=== PATIENT | female | born 1995 | race Hispanic/Latino ===

== ENCOUNTER 2022-08-09 14:51 | Emergency (ER) | payer OTHER ==
--- NOTE | 2022-08-09 15:49 | EDPHYS ---
Physician Documentation [facility] Name: Jessica Webb Age: 27 yrs Sex: Female : 1995 Arrival Date: 08/09/2022 Time: 14:51 Bed DX4 Private MD: ED Physician Jack Felix HPI: 08/09 15:51 This 27 yrs old Female presents to ER via Ambulatory with complaints of snw Toothache. 15:51 The patient presents with broken tooth/teeth. The problem is located in the upper left snw third molar. Onset: The symptoms/episode began/occurred acutely. Duration: The symptoms are continuous. Severity of symptoms: At their worst the symptoms were very mild. It is unknown whether or not the patient has had similar symptoms in the past. It is unknown whether or not the patient has recently seen a physician. [employer]: 15:11 LMP 08/08/2022 cm10 Historical: - Allergies: 15:10 metformin; cm10 - PMHx: 15:10 Diabetes mellitus; cm10 - PSHx: 15:10 section; cm10 15:12 Ligation of fallopian tube; cm10 - Immunization history:: Adult Immunizations unknown. - Social history:: Smoking status: Patient/guardian denies using tobacco. ROS: 15:51 Constitutional: Negative for fever, chills, and weight loss, Eyes: Negative for injury, snw pain, redness, and discharge, ENT: Negative for injury, pain, and discharge, broken tooth, encouraged to get seen for abx Neck: Negative for injury, pain, and swelling, Cardiovascular: Negative for chest pain, palpitations, and edema, Respiratory: Negative for shortness of breath, cough, wheezing, and pleuritic chest pain, Abdomen/GI: Negative for abdominal pain, nausea, vomiting, diarrhea, and constipation, Back: Negative for injury and pain, : Negative for injury, bleeding, discharge, and swelling, MS/Extremity: Negative for injury and deformity, Skin: Negative for injury, rash, and discoloration, Neuro: Negative for headache, weakness, numbness, tingling, and seizure, Psych: Negative for depression, anxiety, suicide ideation, homicidal ideation, and hallucinations. Exam: 15:50 Constitutional: This is a well developed, well nourished patient who is awake, alert, snw and in no acute distress. Head/Face: Normocephalic, atraumatic. Eyes: Pupils equal round and reactive to light, extra-ocular motions intact. Lids and lashes normal. Conjunctiva and sclera are non-icteric and not injected. Cornea within normal limits. Periorbital areas with no swelling, redness, or edema. ENT: Nares patent. No nasal discharge, no septal abnormalities noted. Tympanic membranes are normal and external auditory canals are clear. Oropharynx with no redness, swelling, or masses, exudates, or evidence of obstruction, uvula midline. Mucous membranes moist. Broken molar to left upper area, denies pain Neck: Trachea midline, no thyromegaly or masses palpated, and no cervical lymphadenopathy. Supple, full range of motion without nuchal rigidity, or vertebral point tenderness. No Meningismus. Chest/axilla: Normal chest wall appearance and motion. Nontender with no deformity. No lesions are appreciated. Cardiovascular: Regular rate and rhythm with a normal S1 and S2. No gallops, murmurs, or rubs. Normal PMI, no JVD. No pulse deficits. Respiratory: Lungs have equal breath sounds bilaterally, clear to auscultation and percussion. No rales, rhonchi or wheezes noted. No increased work of breathing, no retractions or nasal flaring. Abdomen/GI: Soft, non-tender, with normal bowel sounds. No distension or tympany. No guarding or rebound. No evidence of tenderness throughout. Back: No spinal tenderness. No costovertebral tenderness. Full range of motion. Skin: Warm, dry with normal turgor. Normal color with no rashes, no lesions, and no evidence of cellulitis. MS/ Extremity: Pulses equal, no cyanosis. Neurovascular intact. Full, normal range of motion. Neuro: Awake and alert, GCS 15, oriented to person, place, time, and situation. Cranial nerves II-XII grossly intact. Motor strength 5/5 in all extremities. Sensory grossly intact. Cerebellar exam normal. Normal gait. Vital Signs: 15:06 BP 143 / 104; Pulse 109; Resp 18; Temp 98.4(O); Pulse Ox 98% on R/A; Weight 83.01 kg cm10 (R); Height 5 ft. 5 in. (R); Pain 0/10; 15:06 Body Mass Index 30.45 (83.01 kg, 165.1 cm) cm10 15:06 Pain Scale: Adult cm10 MDM: 15:33 Patient medically screened. snw 15:52 Differential diagnosis: dental caries, gingivitis, dental abscess. Data reviewed: vital snw signs, nurses notes. Counseling: I had a detailed discussion with the patient and/or guardian regarding: the historical points, exam findings, and any diagnostic results supporting the discharge/admit diagnosis, the presence of at least one elevated blood pressure reading (>120/80) during this emergency department visit, the need for outpatient follow up, for definitive care, to return to the emergency department if symptoms worsen or persist or if there are any questions or concerns that arise at home. Special discussion: I have referred the patient to see his PCP for further evaluation of high blood pressure. Based on the history and exam findings, there is no indication for further emergent testing or inpatient evaluation. I discussed with the patient/guardian the need to see a dentist for further evaluation of the symptoms. I discussed with the patient/guardian the need to see the primary care provider for further evaluation of the symptoms. Administered Medications: 16:05 Drug: Amoxicillin-Clavulanate PO 875 mg Route: PO; ll1 16:05 Follow up: Response: No adverse reaction ll1 Disposition Summary: 08/09/22 15:48 Discharge Ordered Location: Home snw Condition: Stable snw Diagnosis - Dental caries, unspecified snw Followup: snw - With: Emergency Department - When: As needed - Reason: Worsening of condition Followup: snw - With: Private Physician - When: 2 - 3 days - Reason: Recheck today's complaints, Continuance of care, Re-evaluation by your physician Discharge Instructions: - Discharge Summary Sheet snw - Dental Caries, Adult snw - Diabetes Mellitus and Nutrition, Adult snw - Diet and Dental Disease snw - Diabetes Mellitus and Standards of Medical Care snw Forms: - Medication Reconciliation Form snw - Thank You Letter snw - Antibiotic Education snw - Prescription Opioid Use snw Prescriptions: - Augmentin 500-125 mg Oral Tablet - take 1 tablet by ORAL route every 8 hours for 10 days; 30 tablet; Refills: 0, snw Product Selection Permitted Signatures: Heidi Engel FNP-Yfn WASTE MACHINE OPERATOR-Csnw Ellie Wynne RN RN ll1 Terra Knowles, RN RN cm10
--- NOTE | 2022-08-09 15:49 | ER ---
Nurse's Notes [facility] Name: Jessica Webb Age: 27 yrs Sex: Female : 1995 Arrival Date: 08/09/2022 Time: 14:51 Bed DX4 Private MD: Diagnosis: Dental caries, unspecified Presentation: 08/09 15:06 Chief complaint: Patient states: Pt reports, "I called my doctor and he told me to come cm10 to the ED because I broke my tooth and I am diabetic. I am not having any pain.". Coronavirus screen: Vaccine status: Patient reports receiving the 2nd dose of the covid vaccine. Client denies travel out of the [place] in the last 14 days. At this time, the client does not indicate any symptoms associated with coronavirus-19. Ebola Screen: No symptoms or risks identified at this time. Initial Sepsis Screen: Does the patient meet any 2 criteria? No. Patient's initial sepsis screen is negative. Does the patient have a suspected source of infection? No. Patient's initial sepsis screen is negative. Risk Assessment: Do you want to hurt yourself or someone else? Patient reports no desire to harm self or others. Onset of symptoms was August 04, 2022. 15:06 Method Of Arrival: Ambulatory cm10 15:06 Acuity: SURINDER 4 cm10 Triage Assessment: 15:16 General: Appears in no apparent distress. uncomfortable, Behavior is calm, cooperative. cm10 Pain: Denies pain. EENT: Reports broken molar to the top right side . Neuro: No deficits noted. Level of Consciousness is awake, alert, obeys commands, Oriented to person, place, time, situation. Respiratory: No deficits noted. Airway is patent Trachea midline Respiratory effort is even, unlabored, Respiratory pattern is regular, symmetrical. 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 - Social history:: Smoking status: Patient/guardian denies using tobacco. Screenin:19 [facility] ED Fall Risk Assessment (Adult) History of falling in the last 3 months, cm10 including since admission No falls in past 3 months (0 pts) Confusion or Disorientation No (0 pts) Intoxicated or Sedated No (0 pts) Impaired Gait No (0 pts) Mobility Assist Device Used No (0 pt) Altered Elimination No (0 pt) Score/Fall Risk Level 0 - 2 = Low Risk. Abuse screen: Denies threats or abuse. Denies injuries from another. Nutritional screening: No deficits noted. Tuberculosis screening: No symptoms or risk factors identified. Assessment: 15:19 Reassessment: No changes from previously documented assessment. cm10 16:05 Reassessment: No changes from previously documented assessment. Patient and/or family ll1 updated on plan of care and expected duration. Pain level reassessed. Vital Signs: 15:06 BP 143 / 104; Pulse 109; Resp 18; Temp 98.4(O); Pulse Ox 98% on R/A; Weight 83.01 kg cm10 (R); Height 5 ft. 5 in. (R); Pain 0/10; 15:06 Body Mass Index 30.45 (83.01 kg, 165.1 cm) cm10 15:06 Pain Scale: Adult cm10 ED Course: 14:55 Patient arrived in ED. mr 15:10 Triage completed. cm10 15:12 Arm band placed on Patient placed in waiting room. cm10 15:19 Heidi [facility]el [facility]-C [facility]. snw 15:19 Jack Felix MD is Attending Physician. snw 15:19 Patient has correct armband on for positive identification. cm10 16:05 No provider procedures requiring assistance completed. Patient did not have IV access ll1 during this emergency room visit. Administered Medications: 16:05 Drug: Amoxicillin-Clavulanate PO 875 mg Route: PO; ll1 16:05 Follow up: Response: No adverse reaction ll1 Medication: 15:19 VIS not applicable for this client. cm10 Outcome: 15:48 Discharge ordered by . snw 16:05 Discharged to home ambulatory. ll1 16:05 Condition: stable 16:05 Discharge instructions given to patient, Instructed on discharge instructions, follow up and referral plans. medication usage, Demonstrated understanding of instructions, follow-up care, medications, Prescriptions given X 1. 16:06 Patient left the ED. ll1 Signatures: Heidi Engel FNP-C FNP-Csnw Radha Villagran mr Ricci, Ellie, RN RN ll1 Benson, Terra, RN RN cm10
[2022-08-09] MEDS ORDERED: AMOX/K CLAV 875 MG TAB ONE (16:08)
[2022-08-09 16:46] VITALS: BP 143/104; TEMP 98.4; O2SAT 98
== END 2022-08-09 16:06 | disposition home or self-care (01) ==
LOC: ER 14:51
DX: K02.9 Dental caries, unspecified (principal); E11.9 Type 2 diabetes mellitus without complications; Z88.8 Allergy status to other drugs, medicaments and biological substances
CPT/HCPCS: 99283

== ENCOUNTER 2023-07-10 13:04 | Emergency (ER) | payer OTHER, SELFPAY ==
--- OUTSIDE RECORDS SUMMARY | 2023-07-10 13:09 | XMS REPORT | Continuity of Care Document ---
Author Name Unknown Address [address] [place] [address] [address] [place] [address] 1 [address] [place] [address] Care Team Providers Care Parts Finisher Name Role Phone Unavailable Unavailable Unavailable Encounters Start Date/Time End Date/Time Encounter Type Admission Type Attending Clinicians Care Facility Care Department Encounter ID Source 2023-06-27 10:00:51 2023-06-27 10:00:[address] [facility] [id number] Francesco Batista
[2023-07-10] MEDS ORDERED: dexAMETHasone 10 MG/ML VIAL ONE (13:36)
[2023-07-10] MEDS ORDERED: HYDROCODONE/APAP 7.5/325 MG TAB ONE (13:36)
--- NOTE | 2023-07-10 14:01 | RAD REPORT ---
EXAM DESCRIPTION: RAD - Tib Fib Right - 07/10/2023 1:43 pm CLINICAL HISTORY: Right leg pain FINDINGS: No fracture is seen
[2023-07-10 14:28] LABS: Specific Gravity 1.026 (1.005-1.030)
[2023-07-10 14:32] LABS: Specific Gravity 1.026 (1.005-1.030); Sqamous Epithelial <5 /HPF (None Seen); Urine Bacteria <20 /HPF (<20); Urine Bilirubin NEGATIVE (Negative); Urine Blood Negative (Negative); Urine Clarity Turbid (Clear); Urine Color Yellow (Yellow); Urine Culture Reflex Order NOT NEEDED; Urine Glucose 4+ (Over) (Negative); Urine Ketones 2+ (Negative); Urine Microscopic Reflex YN ORDER UMIC; Urine Mucus 2+ /HPF (None Seen); Urine Nitrite NEGATIVE (Negative); Urine Protein TRACE (Negative); Urine RBC <5 /HPF (None Seen); Urine Urobilinogen 1+ (Normal); Urine WBC <5 /HPF (<5)
--- NOTE | 2023-07-10 14:47 | EDPHYS ---
Physician Documentation [facility] Name: Jessica Webb Age: 28 yrs Sex: Female : 1995 Arrival Date: 07/10/2023 Time: 13:04 Bed 19 Private MD: ED Physician Justin Bragg HPI: 07/09 13:51 This 28 yrs old Female presents to ER via Ambulatory with complaints of Leg kb Pain. 13:51 Pt is a 28 year old female who presents for left low back pain and right leg pain that kb started 1.5 weeks ago after stepping into a hole with right foot and getting stuck. States her pulled her leg out of the hole. Was seen at another ER and given antiinflammatories and muscle relaxers, but the pain has not improved. States they did not do x-rays to evaluate her leg. . 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 - Infectious Disease History:: Denies. - Social history:: Smoking status: Patient denies any tobacco usage or history of. ROS: 13:51 Constitutional: As per HPI kb Exam: 13:51 Constitutional: This is a well developed, well nourished patient who is awake, alert, kb and in no acute distress. Head/Face: Normocephalic, atraumatic. ENT: Moist Mucous membranes Cardiovascular: Regular rate Respiratory: Respirations even and unlabored. No increased work of breathing. Talking in full sentences Skin: Warm, dry with normal turgor. Normal color. Neuro: Awake and alert, GCS 15, oriented to person, place, time, and situation. Moves all extremities. Normal gait. 13:51 Back: pain, that is moderate, of the left low back, 13:51 Musculoskeletal/extremity: Extremities: grossly normal except: noted in the right leg: pain, noted in the right verde: tenderness, ROM: intact in all extremities, Circulation is intact in all extremities. Sensation intact. Weight bearing: able to fully bear weight, Vital Signs: 13:11 BP 140 / 90; Pulse 84; Resp 18; Temp 97.7; Pulse Ox 100% ; Weight 80.29 kg; Height 5 as6 ft. 5 in. ; Pain 7/10; 14:58 BP 123 / 87; Pulse 85; Resp 19 S; Pulse Ox 100% on R/A; kc6 13:11 Body Mass Index 29.45 (80.29 kg, 165.1 cm) as6 13:11 Pain Scale: Adult as6 MDM: 13:10 Patient medically screened. kb 13:53 Differential diagnosis: closed fracture, strain, sciatica. Data reviewed: vital signs, kb nurses notes. 14:10 Counseling: I had a detailed discussion with the patient and/or guardian regarding the kb historical points, exam findings, and any diagnostic results supporting the discharge/admit diagnosis, lab results, radiology results, the need for outpatient follow up, a family practitioner, a orthopedic surgeon, to return to the emergency department if symptoms worsen or persist or if there are any questions or concerns that arise at home. 07/09 13:21 Order name: Test, Urine; Complete Time: 14:43 kb 07/09 13:21 Order name: Urinalysis w/ reflexes; Complete Time: 14:43 kb 07/09 13:21 Order name: Tib Fib Right XRAY; Complete Time: 14:10 kb Administered Medications: 13:47 Drug: Dexamethasone IM 10 mg IM once Route: IM; Site: right deltoid; kc6 14:51 Follow up: Response: No adverse reaction [facility] 13:47 Drug: Hydrocodone-Acetaminophen PO (7.5 mg-325 mg) 1 tabs PO once Route: PO; kc6 14:51 Follow up: Response: No adverse reaction; Pain is decreased; RASS: Alert and Calm (0) kc6 Disposition: 17:50 Co-signature as Attending Physician, Justin Bragg MD I reviewed the patient's care rn provided by the Advanced Practice Provider and agree with the diagnosis and treatment plan. Disposition Summary: 07/10/23 14:46 Discharge Ordered Notes: Location: Home Condition: Stable kb Diagnosis - Pain in right leg kb Followup: kb - With: Emergency Department - When: As needed - Reason: Worsening of condition Followup: kb - With: Private Physician - When: 2 - 3 days - Reason: Recheck today's complaints, Continuance of care, Re-evaluation by your physician Discharge Instructions: - Discharge Summary Sheet kb - Musculoskeletal Pain kb Forms: - Medication Reconciliation Form kb - Antibiotic Education kb - Prescription Opioid Use kb - Patient Portal Instructions kb - Leadership Thank You Letter kb Signatures: Dispatcher [employer] EDLolita Georges FNP-C FNP-Justin Mares MD MD rn Slawson, Ashby, RN RN as6 Nette Grossman RN RN kc6 Corrections: (The following items were deleted from the chart) 13:21 13:21 Test, Urine+UC.LAB.BRZ ordered. EDMS EDMS 13:21 13:21 Urinalysis+U.LAB.BRZ ordered. EDMS EDMS
--- NOTE | 2023-07-10 14:47 | ER ---
Nurse's Notes [facility] Name: Jessica Webb Age: 28 yrs Sex: Female : 1995 Arrival Date: 07/10/2023 Time: 13:04 Bed 19 Private MD: Diagnosis: Pain in right leg Presentation: 07/09 13:11 Chief complaint: Patient states: right leg pain after stepping into a pot hole a week as6 and a half ago. Coronavirus screen: At this time, the client does not indicate any symptoms associated with coronavirus-19. Ebola Screen: No symptoms or risks identified at this time. Initial Sepsis Screen: Does the patient meet any 2 criteria? No. Patient's initial sepsis screen is negative. Does the patient have a suspected source of infection? No. Patient's initial sepsis screen is negative. Risk Assessment: Do you want to hurt yourself or someone else? Patient reports no desire to harm self or others. Onset of symptoms was June 30, 2023. 13:11 Acuity: SURINDER 4 as6 13:11 Method Of Arrival: Ambulatory as6 Triage Assessment: 13:13 General: Appears uncomfortable, Behavior is calm, cooperative. Pain: Complains of pain as6 in right leg. 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 - Infectious Disease History:: Denies. - Social history:: Smoking status: Patient denies any tobacco usage or history of. Screenin:15 [facility] ED Fall Risk Assessment (Adult) History of falling in the last 3 months, kc6 including since admission No falls in past 3 months (0 pts) Confusion or Disorientation No (0 pts) Intoxicated or Sedated No (0 pts) Impaired Gait No (0 pts) Mobility Assist Device Used No (0 pt) Altered Elimination No (0 pt) Score/Fall Risk Level 0 - 2 = Low Risk. Abuse screen: Denies threats or abuse. Denies injuries from another. Nutritional screening: No deficits noted. Tuberculosis screening: No symptoms or risk factors identified. Assessment: 13:15 General: Appears in no apparent distress. uncomfortable, well groomed, well developed, kc6 Behavior is calm, cooperative, appropriate for age. Pain: Complains of pain in right leg. Neuro: Level of Consciousness is awake, alert, obeys commands, Oriented to person, place, time, situation, Appropriate for age. Cardiovascular: Capillary refill < 3 seconds. Respiratory: Airway is patent Trachea midline Respiratory effort is even, unlabored, Respiratory pattern is regular, symmetrical. GI: No signs and/or symptoms were reported involving the gastrointestinal system. : No signs and/or symptoms were reported regarding the genitourinary system. EENT: No signs and/or symptoms were reported regarding the EENT system. Derm: No signs and/or symptoms reported regarding the dermatologic system. Skin is intact, is healthy with good turgor, Skin is pink, warm \T\ dry. Musculoskeletal: Circulation, motion, and sensation intact. Capillary refill < 3 seconds, Range of motion: intact in all extremities. 14:15 Reassessment: Patient appears in no apparent distress at this time. No changes from kc6 previously documented assessment. Patient and/or family updated on plan of care and expected duration. Pain level reassessed. Patient is alert, oriented x 3, equal unlabored respirations, skin warm/dry/pink. Vital Signs: 13:11 BP 140 / 90; Pulse 84; Resp 18; Temp 97.7; Pulse Ox 100% ; Weight 80.29 kg; Height 5 as6 ft. 5 in. ; Pain 7/10; 14:58 BP 123 / 87; Pulse 85; Resp 19 S; Pulse Ox 100% on R/A; kc6 13:11 Body Mass Index 29.45 (80.29 kg, 165.1 cm) as6 13:11 Pain Scale: Adult as6 ED Course: 13:08 Patient arrived in ED. mg5 13:10 Lolita Oconnor [facility]-C [facility] kb 13:10 Justin Bragg MD is Attending Physician. kb 13:11 Arm band placed on right wrist. as6 13:12 Triage completed. as6 13:15 Patient has correct armband on for positive identification. Bed in low position. Call kc6 light in reach. Side rails up X 1. Client placed on continuous cardiac and pulse oximetry monitoring. NIBP monitoring applied. 13:26 Grossman, Nette, RN is Primary Nurse. kc6 13:40 Tib Fib Right XRAY In Process Unspecified. EDMS 14:58 No provider procedures requiring assistance completed. Patient did not have IV access kc6 during this emergency room visit. Administered Medications: 13:47 Drug: Dexamethasone IM 10 mg IM once Route: IM; Site: right deltoid; kc6 14:51 Follow up: Response: No adverse reaction kc6 13:47 Drug: Hydrocodone-Acetaminophen PO (7.5 mg-325 mg) 1 tabs PO once Route: PO; kc6 14:51 Follow up: Response: No adverse reaction; Pain is decreased; RASS: Alert and Calm (0) kc6 Medication: 14:58 VIS not applicable for this client. kc6 Outcome: 14:46 Discharge ordered by . kb 14:58 Discharged to home ambulatory, with significant other, kc6 14:58 Condition: good 14:58 Discharge instructions given to patient, Instructed on discharge instructions, follow up and referral plans. Demonstrated understanding of instructions, follow-up care, 14:58 Patient left the ED. kc6 Signatures: Dispatcher [employer] EDMS Lolita Oconnor, NIGHT BAKER-C NIGHT BAKER-Ramón Barron RN RN as6 Nette Grossman, RN RN candi6 Gloria Lin mg5
[2023-07-10 15:57] VITALS: BP 123/87; TEMP 97.7; O2SAT 100
== END 2023-07-10 14:58 | disposition home or self-care (01) ==
LOC: ER 13:04
DX: M79.604 Pain in right leg (principal)
CPT/HCPCS: 81001; 81025; J1100

== ENCOUNTER 2023-11-01 10:13 | Emergency (ER) | payer SELFPAY ==
--- OUTSIDE RECORDS SUMMARY | 2023-11-01 10:16 | XMS REPORT | Continuity of Care Document ---
Author Name Unknown Address [address] [place] [address]. [address] [place] [address] [facility] [address] [facility] [address] [place] [address] Care Team Providers Care Still Operator Brandy Name Role Phone Unavailable Unavailable Unavailable Encounters Start Date/Time End Date/Time Encounter Type Admission Type Attending Clinicians Care Facility Care Department Encounter ID Source 2023-06-27 10:00:51 2023-06-27 10:00:51 Outpatient [facility] [id number] Francesco Batista
[2023-11-01] MEDS ORDERED: KETOROLAC 30 MG/ML INJ ONE (10:33)
[2023-11-01] MEDS ORDERED: CYCLOBENZAPRINE 10 MG TAB ONE (10:33)
--- NOTE | 2023-11-01 10:33 | ER ---
Nurse's Notes [facility] Name: Jessica Webb Age: 28 yrs Sex: Female : 1995 Arrival Date: 11/01/2023 Time: 10:13 Bed IW1 Private MD: Diagnosis: Muscle spasm of back;Low back pain Presentation: 10/31 10:26 Chief complaint: Patient states: Lower back pain X 2 days. Denies injury. [place] back ld1 pull while giving daughter bath. Coronavirus screen: At this time, the client does not indicate any symptoms associated with coronavirus-19. Ebola Screen: No symptoms or risks identified at this time. Initial Sepsis Screen: Does the patient meet any 2 criteria? No. Patient's initial sepsis screen is negative. Does the patient have a suspected source of infection? No. Patient's initial sepsis screen is negative. Risk Assessment: Do you want to hurt yourself or someone else? Patient reports no desire to harm self or others. Onset of symptoms was November 01, 2023. 10:26 Method Of Arrival: Ambulatory ld1 10:26 Acuity: SURINDER 4 ld1 Triage Assessment: 10:26 General: Appears in no apparent distress. comfortable, Behavior is calm, cooperative, ld1 appropriate for age. Pain: Complains of pain in back Pain does not radiate. Pain currently is 8 out of 10 on a pain scale. Quality of pain is described as throbbing, Pain began suddenly, Is continuous. EENT: No signs and/or symptoms were reported regarding the EENT system. Neuro: Level of Consciousness is awake, alert, obeys commands, Oriented to person, place, time, situation, Appropriate for age. Cardiovascular: Capillary refill < 3 seconds Patient's skin is warm and dry. Respiratory: Airway is patent Respiratory effort is even, unlabored. GI: Abdomen is round non-distended. : No signs and/or symptoms were reported regarding the genitourinary system. Derm: No signs and/or symptoms reported regarding the dermatologic system. Musculoskeletal: Range of motion: intact in all extremities. Historical: - Allergies: 10:26 metformin; ld1 - PMHx: 10:26 diabetes mellitus; ld1 - PSHx: 10:26 section; Ligation of fallopian tube; ld1 - Immunization history:: Adult Immunizations up to date. - Infectious Disease History:: Denies. - Social history:: Smoking status: Patient denies any tobacco usage or history of. Screenin:28 [facility] ED Fall Risk Assessment (Adult) History of falling in the last 3 months, ld1 including since admission No falls in past 3 months (0 pts) Confusion or Disorientation No (0 pts) Intoxicated or Sedated No (0 pts) Impaired Gait No (0 pts) Mobility Assist Device Used No (0 pt) Altered Elimination No (0 pt) Score/Fall Risk Level 0 - 2 = Low Risk Oriented to surroundings, Maintained a safe environment, Educated pt \T\ family on fall prevention, incl call for assistance when getting out of bed, Assessed \T\ reinforced patient's understanding of fall precautions, Provided non-skid footwear, Hourly rounding (assess needs \T\ fall precautionary measures) done, Used ambulatory aids as needed (educated on \T\ assisted with), Used gait belt as appropriate. Abuse screen: Denies threats or abuse. Denies injuries from another. Nutritional screening: No deficits noted. Tuberculosis screening: No symptoms or risk factors identified. Assessment: 10:28 Reassessment: See triage assessment. Neuro: Level of Consciousness is awake, alert, ld1 obeys commands, Oriented to person, place, time, situation, Appropriate for age. Vital Signs: 10:27 BP 144 / 92; Pulse 93; Resp 18; Temp 97.6(TE); Pulse Ox 100% on R/A; Weight 78.47 kg; ld1 Height 5 ft. 5 in. ; Pain 7/10; 10:27 Body Mass Index 28.79 (78.47 kg, 165.1 cm) ld1 10:27 Pain Scale: Adult ld1 ED Course: 10:20 Patient arrived in ED. sj2 10:22 Max Caputo DO is Attending Physician. ms3 10:26 Triage completed. ld1 10:27 Arm band placed on right wrist. ld1 10:28 Patient has correct armband on for positive identification. Placed in gown. Bed in low ld1 position. Call light in reach. Side rails up X2. quality assurance monitor body on. Pulse ox on. NIBP on. Door closed. Noise minimized. Warm blanket given. 10:28 No provider procedures requiring assistance completed. Patient did not have IV access ld1 during this emergency room visit. 10:32 Elder De Luna DO is Referral Physician. ms3 10:40 Tiffanie Caputo, MARIA DEL ROSARIO is Primary Nurse. ld1 Administered Medications: 10:25 Drug: Ketorolac IM 15 mg IM once Route: IM; Site: left deltoid; ld1 10:41 Follow up: Response: No adverse reaction ld1 10:25 Drug: Cyclobenzaprine PO 10 mg PO once Route: PO; ld1 10:41 Follow up: Response: No adverse reaction ld1 Medication: 10:28 VIS not applicable for this client. ld1 Outcome: 10:33 Discharge ordered by MD. ms3 10:41 Discharged to home ambulatory, ld1 10:41 Condition: stable 10:41 Discharge instructions given to patient, Instructed on discharge instructions, follow up and referral plans. medication usage, Demonstrated understanding of instructions, follow-up care, medications, Prescriptions given X 2, 10:41 Patient left the ED. ld1 Signatures: Max Caputo DO DO ms3 Tiffanie Caputo, MARIA DEL ROSARIO RN ld1 Jaswant Galicia 2
--- NOTE | 2023-11-01 10:33 | EDPHYS ---
Physician Documentation [facility] Name: Jessica Webb Age: 28 yrs Sex: Female : 1995 Arrival Date: 11/01/2023 Time: 10:13 Bed IW1 Private MD: ED Physician Max Caputo HPI: 10/31 10:33 This 28 yrs old Female presents to ER via Ambulatory with complaints of Back ms3 Pain. 10:33 28-year-old female with past medical history of diabetes, asthma [place] [facility] [place] for left-sided back pain that began after bathing her daughter on Saturday. Patient states she was bent over washing her hair when she felt a pop in her back and the pain began. Patient states she has a knot in her back. She rates her discomfort a 7/10. She denies any alleviating or inciting factors. Historical: - Allergies: 10:26 metformin; ld1 - PMHx: 10:26 diabetes mellitus; ld1 - PSHx: 10:26 section; Ligation of fallopian tube; ld1 - Immunization history:: Adult Immunizations up to date. - Infectious Disease History:: Denies. - Social history:: Smoking status: Patient denies any tobacco usage or history of. ROS: 10:33 Constitutional: Negative for fever, and chills. Cardiovascular: Negative for chest ms3 pain, and palpitations. Respiratory: Negative for shortness of breath, cough, wheezing, and pleuritic chest pain, Abdomen/GI: Negative for abdominal pain, nausea, vomiting, diarrhea, and constipation, 10:33 Back: Positive for pain with movement, Exam: 10:33 Constitutional: This is a well developed, well nourished patient who is awake, alert, ms3 and in no acute distress. Chest/axilla: Normal chest wall appearance and motion. Nontender with no deformity. Cardiovascular: Regular rate and rhythm with a normal S1 and S2. No gallops, murmurs, or rubs. Normal PMI, no JVD. No pulse deficits. Respiratory: Lungs have equal breath sounds bilaterally, clear to auscultation and percussion. No rales, rhonchi or wheezes noted. No increased work of breathing, no retractions or nasal flaring. Abdomen/GI: Soft, non-tender, with normal bowel sounds. No distension or tympany. No guarding or rebound. No evidence of tenderness throughout. 10:33 Skin: Warm, dry with normal turgor. Normal color with no rashes, no lesions, and no evidence of cellulitis. 10:33 Back: pain, that is moderate, of the left low back, CVA tenderness, is absent, Vital Signs: 10:27 BP 144 / 92; Pulse 93; Resp 18; Temp 97.6(TE); Pulse Ox 100% on R/A; Weight 78.47 kg; ld1 Height 5 ft. 5 in. ; Pain 09/03; 10:27 Body Mass Index 28.79 (78.47 kg, 165.1 cm) ld1 10:27 Pain Scale: Adult ld1 MDM: 10:32 Patient medically screened. ms3 10:33 Differential diagnosis: ruptured disc, sprain. Data reviewed: vital signs, nurses ms3 notes, and as a result, I will discharge patient. I considered the following discharge prescriptions or medication management in the emergency department Medications were administered in the Emergency Department. See MAR. Counseling: I had a detailed discussion with the patient and/or guardian regarding the historical points, exam findings, and any diagnostic results supporting the discharge/admit diagnosis, the need for outpatient follow up, to return to the emergency department if symptoms worsen or persist or if there are any questions or concerns that arise at home. Special discussion: I discussed with the patient/guardian in detail that at this point there is no indication for admission to the hospital. It is understood, however, that if the symptoms persist or worsen the patient needs to return immediately for re-evaluation. ED course: Discussed physical exam findings with patient. Patient to follow-up with primary care physician in 2 to 3 days. Patient understands and agrees with plan. All questions were answered. Return precautions discussed include worsening symptoms, or any other concerns. Administered Medications: 10:25 Drug: Ketorolac IM 15 mg IM once Route: IM; Site: left deltoid; ld1 10:41 Follow up: Response: No adverse reaction ld1 10:25 Drug: Cyclobenzaprine PO 10 mg PO once Route: PO; ld1 10:41 Follow up: Response: No adverse reaction ld1 Disposition Summary: 11/01/23 10:33 Discharge Ordered Notes: Location: Home ms3 Condition: Stable ms3 Diagnosis - Muscle spasm of back ms3 - Low back pain ms3 Followup: ms3 - With: Elder De Luna DO - When: 2 - 3 days - Reason: Recheck today's complaints Discharge Instructions: - Discharge Summary Sheet ms3 - Acute Back Pain, Adult ms3 Forms: - Medication Reconciliation Form ms3 - Antibiotic Education ms3 - Prescription Opioid Use ms3 - Patient Portal Instructions ms3 - Leadership Thank You Letter ms3 Prescriptions: - Ibuprofen 600 mg Oral Tablet - take 1 tablet ORAL route every 6 hours As needed take with food; 30 tablet; ms3 Refills: 0, Product Selection Permitted - Cyclobenzaprine 10 mg Oral Tablet - take 1 tablet ORAL route every 8 hours As needed; 30 tablet; Refills: 0, ms3 Product Selection Permitted Signatures: Max Caputo DO DO ms3 Tiffanie Caputo, RN RN ld1
[2023-11-01 10:52] VITALS: BP 144/92; TEMP 97.6; O2SAT 100
== END 2023-11-01 10:41 | disposition home or self-care (01) ==
LOC: ER 10:13
DX: M62.830 Muscle spasm of back (principal)
CPT/HCPCS: 96372; 99284